=== PATIENT | male | born 1970 | race Caucasian/White ===

== ENCOUNTER → 2021-09-26 09:55 | Outpatient (CLI) | payer OTHER, SELFPAY ==
[2021-09-26 10:48] LABS: Influenza A - CEPHEID Flu A NEGATIVE (NEGATIVE); Influenza B - CEPHEID Flu B NEGATIVE (NEGATIVE)
[2021-09-26 10:49] LABS: COVID-19 CEPHEID PCR (VTM/NP) POSITIVE (Negative)
== END ==
PROVIDERS: Visit Provider Nurse Practitioner Family
DX: R05.9 Cough, unspecified (principal)
CPT/HCPCS: 0240U

== ENCOUNTER → 2021-09-26 10:05 | Outpatient (CLI) | payer OTHER, SELFPAY ==
--- NOTE | 2021-09-26 10:06 | DI.RAD.S_ITS ---
PROCEDURE: XR CHEST 2V INDICATIONS: Cough TECHNIQUE: 2 views of the chest were acquired. COMPARISON: [facility], , CHEST 2 VIEW, 05/28/2007, 15:59. FINDINGS: Surgical changes and devices: None. Lungs and pleura: Lungs are clear. No pleural effusions or pneumothorax. Mediastinum: Mediastinal contours are normal. Heart size is normal. Bones and chest wall: No suspicious bony abnormalities. Soft tissues appear unremarkable. IMPRESSION: No acute cardiopulmonary disease process. Dictated by: Fara Arrieta MD, PhD on 09/26/2021 at 14:40 Approved by: Fara Arrieta MD, PhD on 09/26/2021 at 14:42
== END ==
PROVIDERS: PCP Nurse Practitioner Family; Referring Provider Nurse Practitioner Family; Visit Provider Nurse Practitioner Family
DX: R05.9 Cough, unspecified (principal)
CPT/HCPCS: 0240U; 71046

== ENCOUNTER 2023-01-16 20:16 | Emergency (ER) | payer MEDICAID, SELFPAY ==
[2023-01-16 20:17] VITALS: BP 148/81; PULSE 93; RESP 16; TEMP 37.1; O2SAT 98; BMI 22.4
[2023-01-16 20:54] LABS: Add Manual Diff / Slide Review NO; Basophils Absolute Auto 100 /uL (0-100); Basophils Percent Auto 1.1 % (0-2); Eosinophils Absolute Auto 100 /uL (0-450); Eosinophils Percent Auto 1.1 % (2-4); Hematocrit 41.4 % (41-53); Hemoglobin 14.2 g/dL (13.5-17.5); Lymphocytes Absolute Auto 2200 /uL (1100-4500); Lymphocytes Percent Auto 20.6 % (25-40); Mean Corpuscular HGB Conc 34.3 % (30-36); Mean Corpuscular Hemoglobin 31.8 PG (26-34); Mean Corpuscular Volume 92.5 fL (80-100); Monocytes Absolute Auto 800 /uL (0-900); Monocytes Percent Auto 7.3 % (3-14); Neutrophils Absolute Auto 7500 /uL (1500-7000); Neutrophils Percent Auto 69.9 % (50-75); Platelet Count 306 X10^3/uL (150-400); Red Blood Cell Count 4.48 X10^6/uL (4.5-5.9); Red Cell Distribution Width 13.4 % (11.6-14.8); White Blood Cell Count 10.7 X10^3/uL (4.5-11.0)
[2023-01-16 20:58] LABS: UR Morphine/Opiate cutoff 300 Negative (Negative); Ur Creatinine Normal (Normal); Ur Specific Gravity Normal (Normal); Urine Amphetamines Negative (Negative); Urine Barbiturates Negative (Negative); Urine Benzodiazepines Negative (Negative); Urine Cocaine Negative (Negative); Urine MDMA Negative (Negative); Urine Methadone Negative (Negative); Urine Methamphetamines Negative (Negative); Urine Oxycodone Negative (Negative); Urine Phencyclidine Negative (Negative); Urine Tetrahydrocannabinol Negative (Negative); Urine Tricyclic Antidepressant Negative (Negative); Urine pH Normal (Normal)
[2023-01-16 20:59] LABS: Acetaminophen < 10 ug/mL (10-30); Alanine Aminotransferase 32 IU/L (<50); Albumin Globulin Ratio 1.4 (1.0-2.8); Alkaline Phosphatase 45 U/L (38-126); Aspartate Aminotransferase 39 IU/L (17-59); BUN Creatinine Ratio 23.6 (6-22); Bilirubin Total 0.2 mg/dL (0.2-1.3); Blood Urea Nitrogen 21 mg/dL (9-20); Calcium 9.7 mg/dL (8.4-10.2); Carbon Dioxide 28 mmol/L (22-32); Chloride 104 mmol/L (98-107); Estimated Glomerular Filt Rate > 60 mL/min (>60); Ethanol (ETOH) < 10 mg/dL; Globulin 2.8 g/dL (1.7-4.1); Glucose 113 mg/dL (70-100); HEMOLYSIS < 15 (0-50); Potassium 3.9 mmol/L (3.4-5.1); Salicylate < 1.0 mg/dL (<20); Sodium 137 mmol/L (137-145); Total Protein 6.8 g/dL (6.3-8.2)
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
[2023-01-16 21:10] LABS: COVID19 -Nasal RAPID Negative (Negative)
[2023-01-16 21:17] LABS: Appearance Urine UA CLEAR; Bilirubin Urine UA NEGATIVE (NEGATIVE); Color Urine UA YELLOW; Glucose Urine UA NEGATIVE (Negative); Ketones Urine UA NEGATIVE (NEGATIVE); Leukocyte Esterase Urine UA NEGATIVE (NEGATIVE); Nitrite Urine UA NEGATIVE (Negative); Occult Blood Urine UA NEGATIVE (Negative); Protein Urine UA NEGATIVE (Negative); Specific Gravity Urine UA >=1.030 (1.000-1.035); Urobilinogen Urine UA 0.2 E.U./dL (0.2); pH Urine UA 5.5 (4.5-8.0)
[2023-01-16 21:25] LABS: Bacteria Urine None Seen; Culture Indicated Urine Cult Not Indicated; RBC Urine 0-1/HPF (0-5/HPF); Squamous Epithelial Cell Urine 0-1 /HPF (0-5/HPF); WBC Urine 0-1/HPF (0-5/HPF)
[2023-01-16 21:30] VITALS: RESP 18
[2023-01-16 21:52] LABS: Thyroid Stimulating Hormone 0.417 uIU/mL (0.47-4.68)
[2023-01-16 22:02] VITALS: RESP 18
[2023-01-16 22:36] VITALS: RESP 18
--- NOTE | 2023-01-16 22:56 | PC.NURSE ---
MHP is interviewing patient at bedside.
--- NOTE | 2023-01-16 23:15 | PC.NURSE ---
YOANDYP completed interview, resumed 1:1.
[2023-01-16 23:35] VITALS: RESP 18
[2023-01-17] VITALS (7 sets, daily range): BP systolic 113–138; BP diastolic 69–81; PULSE 78–101; RESP 16–18; TEMP 36.7–36.9; O2SAT 95–100
--- NOTE | 2023-01-17 00:36 | PC.NURSE ---
Patient had snack of a sandwich, applesauce, crackers, and milk.
--- NOTE | 2023-01-17 02:35 | PC.NURSE ---
Contreras (ZUHAIR) zoom called with patient and served ITP papers and explained plan of care. Patient has been accepted and transport is being arranged for [facility]. Patient calm and cooperative, and states concern for wanting a cigarette. Dr. Preston notified.
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
[2023-01-17] MEDS: LORazepam 2 MG/ML INJ IM (03:00)
[2023-01-17] MEDS: HALOPERIDOL 5 MG/ML VIAL IM (03:00)
--- NOTE | 2023-01-17 07:14 | PC.NURSE ---
He is on gurney,eyes closed,resp. even and non labored.
--- NOTE | 2023-01-17 07:30 | PC.NURSE ---
Patient was reduced from 4point restraint to 2point restraint at 0730. His left ankle and right wrist remain restrained. When removing some restraints, pt states take this thing out of my neck too. There is nothing on patient's neck. Patient is alert to self but is confused on situation. When asked why patient was brought to the hospital, patient responds To help my hair growth. When asked to clarify, patient chuckled and states I was kidding. I dont know why I'm here. Pt is cooperative currently, breakfast tray ordered and vitals obtained. His blankets were replaced with fresh, warm blankets.
[2023-01-17] MEDS: LORazepam 0.5 MG TABLET 2 MG PO (08:38)
--- NOTE | 2023-01-17 08:50 | PC.NURSE ---
Patient was removed from restraints at 0850 this morning. Pt was made aware that he will need to be restrained for the transport in the ambulance rig. Pt is cooperative and agrees. Pt was compliant with taking PO meds this morning. Pt laying in bed with warm blankets, juice, and breakfast sandwich.
--- NOTE | 2023-01-17 11:25 | PC.NURSE ---
Patient ambulated to bathroom to urinate. A new pair of psych scrubs were provided to the patient because his old pair had a rip in them. Patient used the bathroom, changed into new clothes, and sat on transport gurney with no complications.
== END 2023-01-17 11:35 ==
PROVIDERS: Emergency Medicine; Emergency Provider Emergency Medicine
DX: F31.9 Bipolar disorder, unspecified (principal); Z20.822 Contact with and (suspected) exposure to COVID-19
CPT/HCPCS: 80053; 80305; 80320; 80329; 81001; 84439; 84443; 85025; 87635; 96372; 99285; C9803; G0480; J1630; J2060

== ENCOUNTER 2023-06-14 13:21 | Day surgery (SDC) | payer OTHER, MEDICAID, SELFPAY ==
--- NOTE | 2023-06-14 | PATH_ITS ---
[facility] Accession Number: [id number] No. of containers..01 Tissue . 01 Material submitted: . gastrointestinal site - GASTRIC . 01 Diagnosis: STOMACH, BIOPSY: Gastric oxyntic mucosa with mild chronic gastritis and focal features suggestive of nearby erosion. Negative for Helicobacter by immunohistochemistry. Negative for intestinal metaplasia. Negative for dysplasia and malignancy. MRV 06/20/2023 1247 Local . 01 Electronically signed: . Ela Davenport MD, Pathologist NPI- [id number] . 01 Gross description: . GASTRIC: Received in formalin are 2 fragment(s) of hyman, soft tissue measuring 0.2 x 0.2 x 0.2 cm to 0.3 x 0.2 x 0.2 cm submitted entirely in 1 cassette(s) /ROSMERY 06/17/2023 1753 Local . 01 Microscopic: . An immunohistochemical stain was performed to evaluate for Helicobacter organisms and is negative. The control stain showed appropriate reactivity. . * This test was developed and its performance characteristics determined by [facility]. It has not been cleared or approved by the U.S. Food and Drug Administration. The FDA has determined that such clearance or approval is not necessary. This test is used for clinical purposes. It should not be regarded as investigational or for research. . 01 Pathologist provided ICD-10: R10.9 . 01 CPT . 231410, D20899 Specimen Comment: A courtesy copy of this report has been sent to [phone] Performed at: 01 [facility] [address] [place] [address] Suite [facility], [place], [place] [id number] MD Reed Archer MD Phone: [phone]
[2023-06-14 14:31] VITALS: BP 100/67; PULSE 67; RESP 18; TEMP 36.9; O2SAT 98
[2023-06-14] MEDS: LACTATED RINGERS 1,000 ML 42 ML IV (14:41)
--- NOTE | 2023-06-14 15:07 | PM.PREOP ---
Pre-operative Note Interval Note History & Physical reviewed/Exam performed by Physician: Yes Changes to H&P: No
[2023-06-14 15:51] VITALS: BP 97/65; PULSE 68; RESP 12; TEMP 36.4; O2SAT 96
[2023-06-14 15:56] VITALS: BP 99/72; PULSE 70; RESP 14; O2SAT 97
--- NOTE | 2023-06-14 16:02 | PM.OP.EC ---
Operative Date/Time/Diagnoses Date of procedure: 06/14/23 Time of procedure: 16:02 Pre-op diagnosis: GERD, colorectal screening Procedure & Clinicians Study performed: Esophagogastroduodenoscopy and colonoscopy Indications: Chronic GERD, colorectal screening Surgeon: Nolberto Nettles Procedure Notes Procedure in detail: The history and physical was performed/updated and the patient is ASA class is 2. The procedure was discussed in detail with the patient. Potential risks complications including infection, bleeding, missed diagnosis, perforation, need for surgery, and were explained. Their questions were answered and informed consent was obtained. Patient placed in left lateral decubitus position. Time out was performed. Procedural sedation was administered by Anesthesia. A bite block was placed. the scope was inserted into the mouth and advanced through the esophagus and into the stomach. the pylorus was intubated and the duodenum was examined to the 2nd portion.. The scope was retroflexed within the stomach. The stomach was then decompressed and scope pulled back to the GE junction. The scope was then removed Examination began with a thorough inspection of the perianal area there was no evidence of fissures, fistulae, external hemorrhoids or cutaneous malignancy. The colonoscopy scope was then placed into the anal canal and was advanced to the cecum, which was identified by the ileocecal valve, the appendiceal orifice and the confluence of the taenia. The scope was then slowly withdrawn examining colon thoroughly in all directions, irrigating it of any residual stool. FINDINGS -mild gastritis. Biopsy of stomach performed with forceps. -unremarkable colonoscopy. No masses polyps or inflammation. The patient tolerated the procedure well. They will be discharged once criteria are met. The prep was of fair quality. The withdrawl time was 6 minutes. Specimen(s): other (Gastric) Impression: Gastritis Post-procedure Plan for aftercare: Start Pepcid 20 mg daily Follow up pathology Disposition: same day surgery
[2023-06-14 16:04] VITALS: BP 101/68; PULSE 72; RESP 16; TEMP 36.4; O2SAT 100
[2023-06-14 16:06] VITALS: BP 105/66; PULSE 66; RESP 16; O2SAT 99
[2023-06-14 16:15] VITALS: BP 116/85; PULSE 64; RESP 16; O2SAT 97
== END 2023-06-14 16:28 | disposition home or self-care (01) ==
PROVIDERS: PCP Registered Nurse; Referring Provider Surgery; Visit Provider Surgery
PROC: 0DJ08ZZ Inspection of Upper Intestinal Tract, Via Natural or Artificial Opening Endoscopic (ICD-10-PCS; CPT 43235; principal; 2023-06-14 14:15)
PROC: 0DJD8ZZ Inspection of Lower Intestinal Tract, Via Natural or Artificial Opening Endoscopic (ICD-10-PCS; CPT 45378; 2023-06-14 14:15)
DX: Z12.11 Encounter for screening for malignant neoplasm of colon (principal); K21.9 Gastro-esophageal reflux disease without esophagitis; K29.70 Gastritis, unspecified, without bleeding
CPT/HCPCS: 45378; 43239; J2704